=== PATIENT | female | born 1980 | race Two or more races ===

== ENCOUNTER 2016-08-05 15:03 | Emergency (ER) | payer SELFPAY ==
[2016-08-05] MEDS ORDERED: DIAZEPAM 5 MG TABLET ONE (16:39)
== END 2016-08-05 17:40 | disposition home or self-care (01) ==
LOC: ED 15:03
DX: F41.0 Panic disorder [episodic paroxysmal anxiety] (principal); R20.9 Unspecified disturbances of skin sensation
CPT/HCPCS: 99283 ×2; 93005; A9270